=== PATIENT | female | born 1995 | race Caucasian/White ===

== ENCOUNTER 2017-01-01 15:23 | Emergency (ER) | payer OTHER | END 2017-01-01 15:58 | disposition home or self-care (01) | LOC: FER 15:23 | DX: L50.0 Allergic urticaria (principal); F17.210 Nicotine dependence, cigarettes, uncomplicated | CPT/HCPCS: 99282 ==

== ENCOUNTER 2017-02-14 12:16 | Emergency (ER) | payer OTHER ==
[2017-02-14 12:48] LABS: BILIRUBIN NEGATIVE (NEGATIVE); BLOOD TRACE-LYSED Ery/uL (NEGATIVE); CLARITY CLEAR (CLEAR); COLOR YELLOW (YELLOW); GLUCOSE (U) NORMAL (NORMAL); KETONE (U) NEGATIVE (NEGATIVE); LEUKOCYTES 1+ Leu/uL (NEGATIVE); NITRITE NEGATIVE (NEGATIVE); PROTEIN NEGATIVE (NEGATIVE); UROBILINOGEN 0.2 mg/dL (0.2-1.0)
[2017-02-14 12:59] LABS: BASOPHIL 0.6 % (0-2); EOSINOPHIL 1.7 % (0-5); HCT 40.5 % (37.0-47.0); MCH 32.6 pg (25.0-31.0); MCHC 34.6 g/dL (32.0-36.0); MCV 94.2 fL (78.0-100.0); MONOCYTE 9.7 % (0-12); MPV 10.8 fL (6.0-9.5); PLT 205 K/uL (150-400); RDW 12.5 % (11.5-14.0); WBC 9.5 K/uL (4.0-10.5)
[2017-02-14 13:09] LABS: BACTERIA 1+
[2017-02-14 13:12] LABS: ALBUMIN 3.8 g/dL (3.5-5.0); BILIRUBIN - TOTAL 0.3 mg/dL (0.1-1.0); CREATININE 0.6 mg/dL (0.5-1.0); GLOBULIN (CALCULATION) 2.5 g/dL (2.2-4.2); POTASSIUM 4.1 mmol/L (3.5-5.1); TOTAL PROTEIN 6.3 g/dL (6.4-8.3)
== END 2017-02-14 13:49 | disposition home or self-care (01) ==
LOC: FER 12:16
PROVIDERS: Emergency Medicine; Nurse Practitioner
DX: N30.01 Acute cystitis with hematuria (principal); Z91.010 Allergy to peanuts
CPT/HCPCS: 36415; 80053; 81001; 82150; 83690; 85025; 87339

== ENCOUNTER 2021-09-17 17:34 | Emergency (ER) | payer OTHER ==
[~2021-09-17 17:34] MED LIST: IBUPROFEN800 MG PO; MEDROL 4MG DOSEP4 MG PO; NAPROXEN500 MG PO
[2021-09-17 19:29] LABS: BASOPHIL 0.5 % (0-2); EOSINOPHIL 1.4 % (0-5); HCT 36.4 % (37.0-47.0); HGB 12.3 g/dl (12.5-16.0); LYMPHOCYTE 20.9 % (15-48); MCH 31.5 pg (25.0-31.0); MCHC 33.8 g/dL (32.0-36.0); MCV 93.3 fL (78.0-100.0); MONOCYTE 7.3 % (0-12); MPV 10.6 fL (6.0-9.5); NEUTROPHIL 69.6 % (41-80); NRBC 0; PLT 223 K/uL (150-400); RDW 11.9 % (11.5-14.0)
[2021-09-17 19:29] LABS: BILIRUBIN NEGATIVE (NEGATIVE); BLOOD NEGATIVE Ery/uL (NEGATIVE); COLOR YELLOW (YELLOW); GLUCOSE (U) NORMAL (NORMAL); LEUKOCYTES TRACE Leu/uL (NEGATIVE); NITRITE NEGATIVE (NEGATIVE); PROTEIN NEGATIVE (NEGATIVE); SPECIFIC GRAVITY 1.025 (1.001-1.030); UROBILINOGEN 0.2 mg/dL (0.2-1.0); pH 6.5 (5.0-9.0)
[2021-09-17 19:31] LABS: CLARITY SLIGHTLY HAZY (CLEAR)
[2021-09-17 19:34] LABS: BACTERIA 2+
[2021-09-17 19:47] LABS: BILIRUBIN - TOTAL 0.2 mg/dL (0.2-1.0); BUN/CREAT RATIO (CALC) 12.5 RATIO; CREATININE 0.56 mg/dL (0.51-0.95); GLOBULIN (CALCULATION) 3.2 g/dL; POTASSIUM 3.7 mmol/L (3.5-5.1); TOTAL PROTEIN 6.2 g/dL (6.4-8.2)
[2021-09-17] MEDS ORDERED: CEPHALEXIN500 MG PO (21:13)
== END 2021-09-17 21:38 | disposition home or self-care (01) ==
LOC: FER 17:34
PROVIDERS: Physician Assistant
DX: O21.9 Vomiting of pregnancy, unspecified (principal); O99.891 Other specified diseases and conditions complicating pregnancy; O99.211 Obesity complicating pregnancy, first trimester; R82.71 Bacteriuria; Z3A.10 10 weeks gestation of pregnancy; Z87.891 Personal history of nicotine dependence
CPT/HCPCS: 36415; 80053; 81001; 83690; 85025; J2765; J7030

== ENCOUNTER 2022-04-06 04:49 | Inpatient (IN) | payer OTHER ==
[~2022-04-06 04:49] MED LIST changes: +CEPHALEXIN500 MG PO
[2022-04-06 06:00] LABS: BILIRUBIN NEGATIVE (NEGATIVE); BLOOD NEGATIVE Ery/uL (NEGATIVE); CLARITY CLEAR (CLEAR); COLOR YELLOW (YELLOW); GLUCOSE (U) NORMAL (NORMAL); LEUKOCYTES 2+ Leu/uL (NEGATIVE); NITRITE NEGATIVE (NEGATIVE); PROTEIN NEGATIVE (NEGATIVE); UROBILINOGEN 0.2 mg/dL (0.2-1.0); pH 6.5 (5.0-9.0)
[2022-04-06 06:01] LABS: HCT 37.4 % (37.0-47.0); HGB 12.8 g/dl (12.5-16.0); MCH 32.6 pg (25.0-31.0); MCHC 34.2 g/dL (32.0-36.0); MCV 95.2 fL (78.0-100.0); MPV 11.5 fL (6.0-9.5); RBC 3.93 M/uL (4.20-5.40); RDW 12.7 % (11.5-14.0); WBC 14.3 K/uL (4.0-10.5)
[2022-04-06 06:06] LABS: AMPHETAMINES NEGATIVE (NEGATIVE); BARBITURATES NEGATIVE (NEGATIVE); ECSTASY (MDMA) NEGATIVE (NEGATIVE); MARIJUANA (THC) NEGATIVE (NEGATIVE); METHADONE NEGATIVE (NEGATIVE); OPIATES NEGATIVE (NEGATIVE); OXYCODONE NEGATIVE (NEGATIVE)
[2022-04-06 06:09] LABS: BACTERIA 2+; MUCOUS MODERATE; SQUAMOUS EPITHELIAL CELLS >50
[2022-04-07 05:51] LABS: HCT 38.6 % (37.0-47.0); MCH 32.7 pg (25.0-31.0); MCHC 33.7 g/dL (32.0-36.0); MPV 11.4 fL (6.0-9.5); RBC 3.98 M/uL (4.20-5.40); WBC 17.6 K/uL (4.0-10.5)
== END 2022-04-08 15:30 | disposition home or self-care (01) | DRG 807 ==
LOC: FOB 04:49
PROVIDERS: ADMIT Obstetrics & Gynecology
PROC: 10E0XZZ Delivery of Products of Conception, External Approach (ICD-10-PCS; principal; 2022-04-06)
PROC: 0HQ9XZZ Repair Perineum Skin, External Approach (ICD-10-PCS; 2022-04-06)
DX: O99.214 Obesity complicating childbirth (principal); Z37.0 Single live birth; O13.4 Gestational [pregnancy-induced] hypertension without significant proteinuria, complicating childbirth; O36.63X0 Maternal care for excessive fetal growth, third trimester, not applicable or unspecified; O99.334 Smoking (tobacco) complicating childbirth; F17.200 Nicotine dependence, unspecified, uncomplicated; Z20.822 Contact with and (suspected) exposure to COVID-19; O70.0 First degree perineal laceration during delivery; Z3A.39 39 weeks gestation of pregnancy; O99.02 Anemia complicating childbirth
CPT/HCPCS: 36415; 80305; 81001; 86850; 86900; 86901; J2795; J7120; U0002